=== PATIENT | male | born 1960 ===

== ENCOUNTER 2017-12-18 11:39 | Emergency (ER) | payer BC ==
[2017-12-18 12:18] VITALS: BP 116/69
--- NOTE | 2017-12-18 13:12 | UC ---
Tr Gibson Tenzin, scribed for Mari Valencia MD on 12/18/17 at 1225 . Complaint Male HPI - HPI Summary HPI Summary: Pt is a 57 years old male presenting to the complaining of dysuria for two weeks. Pt rates the pain at 5/10 in severity and describes it as burning especially during urination. He notes that the severity of the dysuria waxes and wanes. The pain is at the end of his urine stream mostly. No testicular pain. He notes that frequency has increased since then with his urination. He urinated "3 times on the plane from [place]". mild odor to urine. no hematuria. Pt denies back pain, no drainage from penis, no discomfort with bowel movements, fever and chills. No aggravating and alleviating factors were noted. [facility] and he notes "I have a primary lover". Pt states he has not concern for STD and was tested for GC/CH. These results are to return tomorrow. Pt declined testing for them here. Pt declined testing for other STDs. He notes that his partner does not have any symptoms of Urinary tract infection in his knowledge. No rectal pain. No diarrhea. No trauma or concern of injury to rectum. No rash. no lesions He is not taking any medication currently. He is allergic to doxycycline. He does not smoke but occasionally smokes marijuana. He drinks occasionally. Pt declined STD testing from us. Pt's medications reviewed this visit - History of Current Complaint Chief Complaint: UCGU Stated Complaint: URINARY COMPLAINT Hx Obtained From: Patient Onset/Duration: Still Present Timing: Lasting Weeks - two weeks ago. Severity Initially: Mild Severity Currently: Mild Pain Intensity: 5 Pain Scale Used: 0-10 Numeric Location: Testicle - tip of testicles painful during urination and radiates up. Character: Burning Aggravating Factor(s): Other - more painful when he is urinating. Alleviating Factor(s): Nothing Associated Signs And Symptoms: Positive: Negative, Dysuria. Negative: Fever, Hematuria, Penile Swelling, Penile Discharge - Allergies/Home Medications Allergies/Adverse Reactions: Allergies Allergy/AdvReac Type Severity Reaction Status Date / Time doxycycline Allergy Rash Verified 12/18/17 12:19 PMH/Surg Hx/FS Hx/Imm Hx - Additional Past Medical History Additional PMH: NEGATIVE: SC, CVA. Previously Healthy: Yes - Surgical History Surgical History: Yes Surgery Procedure, Year, and Place: appy - Family History Known Family History: Positive: Other - Pt denies any relevant family history. - Social History Occupation: Employed Part-time Lives: Alone Alcohol Use: Occasionally Substance Use Type: Marijuana Smoking Status (MU): Never Smoked Tobacco Review of Systems Constitutional: Negative Skin: Negative Eyes: Negative ENT: Negative Respiratory: Negative Cardiovascular: Negative Gastrointestinal: Negative Genitourinary: Dysuria, Frequency - since having dysuria symptoms., Other - pain at the tip of his testicles Motor: Negative Neurovascular: Negative Musculoskeletal: Negative Neurological: Negative Psychological: Negative All Other Systems Reviewed And Are Negative: Yes Physical Exam - Summary Physical Exam Summary: Vital Signs Reviewed: Yes A+Ox3, no distress Eyes: Conjunctiva Clear ENT: Hearing grossly normal neck: supple Respiratory: Positive: No respiratory distress, No accessory muscle use CTA t hroughout no w/r Cardiovascular: skin color reflect adequate perfusion RRR nl s1, s2 no m/r abd soft + BS no guarding, no rebound soft no CVA b/l Musculoskeletal Exam: EDEN x 4 without difficulty Neurological: Positive: Alert, ambulatory without difficulty Psychological: Positive: Normal Response To Family Skin: Positive: no rash, no ecchymosis Triage Information Reviewed: Yes Vital Signs: Initial Vital Signs Temp 97.9 F 12/18/17 12:14 Pulse 77 12/18/17 12:14 Resp 16 12/18/17 12:14 BP 116/69 12/18/17 12:14 Pulse Ox 99 12/18/17 12:14 Complaint Male Course/Dx - Course Course Of Treatment: Pt with progressive dysuria x 2 weeks. Pt with urgency and end urine buring. No other complaints. Pt [facility] STD [facility] GC/CH. Pt declined STD testing here - concerned for UTI which "[facility]". Pt with 2+ LE. will RX Aumgentin. culture. encouraged pt [facility]. Pt with an appot with PCP next Fri - Differential Dx/Diagnosis Provider Diagnoses: dysuria Discharge - Sign-Out/Discharge Documenting (check all that apply): Discharge/Admit/Transfer - Discharge Plan Condition: Stable Disposition: HOME Prescriptions: Amoxicillin/Clavulanate TAB* [Augmentin TAB 875*] 875 mg PO BID #14 tab Patient Education Materials: Urinary Tract Infection in Men (ED), Dysuria (ED) Referrals: No Primary Care Phys,NOPCP [Primary Care Provider] - Juan Miguel Pritchard MD [Medical Doctor] - Additional Instructions: [facility] earlier this week - Take antibiotics as prescribed until gone - Stay well hydrated - drink plenty of non-alcoholic, non caffinated beverages - Your urine will be further tested - if you require any changes to your treatment, we will contact you - this usually take 2 days - Contact your primary doctor to arrange a follow-up appointment next week. Contact your doctor or return with questions or concerns - Take your antibiotics exactly as prescribed until gone - Okay to alternate ibuprofen (Advil, Motrin) and Tylenol every 3 hours as needed for pain. Take with food - Call your doctor or return with questions or concerns - Billing Disposition and Condition Condition: STABLE Disposition: Home The documentation as recorded by the Tr hudson Tenzin accurately reflects the service I personally performed and the decisions made by me, Mari Valencia MD.
== END 2017-12-18 13:22 | disposition home or self-care (01) ==
LOC: UCEAST 11:39
DX: R30.0 Dysuria (principal); R39.15 Urgency of urination; N50.812 Left testicular pain; N50.811 Right testicular pain; Z88.1 Allergy status to other antibiotic agents
CPT/HCPCS: 81003; 87077; 87086; 99202; G0463

== ENCOUNTER 2018-01-20 07:50 | Day surgery (SDC) | payer BC ==
[~2018-01-20 07:50] MED LIST: Acetaminophen TAB* 325 MG PO PRN; Buffered Lidocaine 0.9% SYRIN* 5 ML/SYR SYRINGE INTRADERM ONE
[2018-01-20] MEDS ORDERED: Cyclopentolate 1% OPTH.SOL* 2 ML BTL ONE (07:54)
[2018-01-20] MEDS ORDERED: Tetracaine 0.5% OPTH.SOL 4 ML* 1 DROP BTL ONE (07:54)
[2018-01-20] MEDS ORDERED: Phenylephrine 2.5% OPTH.SOL* 2 ML BTL ONE (07:54)
[2018-01-20] MEDS ORDERED: Neomycin/Polymy/Dex OPHTH.OIN* 3.5 GM ONE (07:54)
[2018-01-20] MEDS ORDERED: Lidocaine 1%* 5 ML VIAL ONE (07:54)
[2018-01-20] MEDS ORDERED: Ketorolac 0.5% OPHTH (NF) 0.5 % 5 ML BTL ONE (07:54)
[2018-01-20] MEDS ORDERED: Tropicamide 1% OPTH.SOL* BTL ONE (07:54)
[2018-01-20] MEDS ORDERED: fentaNYL* 50 MCG/ML 2 ML VIAL (100 MCG VIAL) ONE (09:51)
[2018-01-20] MEDS ORDERED: Midazolam* 1 MG/ML 5 ML VIAL (5 MG) ONE (09:51)
[2018-01-20] MEDS ORDERED: Propofol* 10 MG/ML 20 ML BTL IV PUSH ONE (10:52)
[2018-01-20 11:06] VITALS: BP 109/79
--- NOTE | 2018-01-21 01:39 | OP ---
DATE OF OPERATION/DATE OF DICTATION: 01/20/2018 - [facility] DATE OF : 60. SURGEON: Dr. Delano Mulligan. DOCTOR OF NURSE ANESTHESIA PRACTICE: None. ANESTHESIA: Topical with intravenous sedation. PRE-OP DIAGNOSIS: Cataract with astigmatism, right eye. POST-OP DIAGNOSIS: Cataract with astigmatism, right eye. OPERATIVE PROCEDURE: Phacoemulsification and cataract extraction with posterior chamber intraocular lens implant (Toric). COMPLICATIONS: None. BLOOD LOSS: None. DESCRIPTION OF PROCEDURE: The patient was seen preoperatively in the holding area, where he was placed in an upright position. A te was made with a marking pen at the 6 o'clock position of the limbus of the right eye. The patient was subsequently brought to the operating room and given a small amount of intravenous sedation. A drop of Tetracaine was placed in his right eye. The patient was prepped and draped in the usual sterile fashion for ophthalmic surgery and attention was directed to the right eye where a speculum was placed. A paracentesis was created at the 11 o'clock position and 0.1 cc of 1% preservative-free Lidocaine was injected into the anterior chamber followed by DisCoVisc. The eye was digitally stabilized where a 2.75 mm keratome was used to create a triplanar clear corneal incision at the 9 o'clock position. A continuous curvilinear capsulorrhexis was created with a cystotome and Utrata forceps. BSS on a cannula was used to hydrodissect the lens from the capsule. Phacoemulsification was performed in a [id number] technique to create 4 fragments which were removed. Residual cortical material was removed with irrigation and aspiration. Healon was used to inflate the capsular bag. A Lopez marker was used to te the 39 degree axis. An [id number] of 18 diopter lens was folded and inserted into the capsular bag. The lens was rotated to the appropriate axial alignment. A Sinskey hook was left in the eye through the paracentesis to stabilize the lens while irrigation and aspiration was performed to remove viscoelastic from the anterior chamber and the capsular bag. The Sinskey hook was removed. BSS on a cannula was used to hydrate the corneal stroma and seal the wound. At the end of the case, the pupil was round and the lens was centered, stable in axial line. The eye pressure appeared normal and the wound was water tight. The speculum was removed and topical Maxitrol ointment was placed on the surface of the eye. The eye was closed, patched and shielded and the patient was sent to the recovery room in stable condition with postoperative instructions and follow-up appointment given. [id number]/CPS #: [id number] MTDD
== END 2018-01-20 11:25 | disposition home or self-care (01) ==
LOC: OREAST 07:50
PROVIDERS: ATTEND Ophthalmology
DX: H25.041 Posterior subcapsular polar age-related cataract, right eye (principal); H52.201 Unspecified astigmatism, right eye; Z87.891 Personal history of nicotine dependence
CPT/HCPCS: A9270-GY; J2250; J2704; J3010; V2787